=== PATIENT | male | born 1985 | race Caucasian/White ===

== ENCOUNTER 2016-12-01 19:41 | Emergency (ER) | payer OTHER ==
--- NOTE | 2016-12-01 20:14 | PROVIDER DOCUMENTATION ---
HPI-Musculoskeletal Pain/Inj - GENERAL Source: patient - HX OF PRESENT ILLNESS-MUSKULOSKELTAL Quality of Pain: reports: aching Severity in ED: moderate Onset/Duration: 1-3 hours ago Timing: still present Modifying Factors: improves with: nothing Any recent injury?: Yes Locality of Occurance: Work Similar Symptoms Previously?: No Recently seen or treated by another doctor?: No - BACK & NECK PAIN/INJURY Back/Neck Pain Location: reports: lumbar spine Back/Neck Pain Radiation: reports: Upper Legs Context / Method of Injury: reports: lifting Associated Symptoms: reports: lower back pain History of Chronic Neck or Back Pain?: No <Griselda Egan - Last Filed: 12/01/16 20:10> <Shilpi Reyes - Last Filed: 12/01/16 20:47> - GENERAL Chief Complaint: Work Related Injury Stated Complaint: @1920 WORK REALTED INJURY Time Seen by Provider: 12/01/16 19:48 - HX OF PRESENT ILLNESS-MUSKULOSKELTAL Nature of Presenting Problem: 31 year old M presents to the ED with a cc of lower back pain. 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 PT c/o pain radiating down left upper leg when leaning to the left. PT denies urinary incontinence, nausea, and vomiting. (Griselda Egan) Review of Systems - Adult - REVIEW OF SYSTEMS - ADULT Constitutional: denies: chills, fever Eyes: reports: no symptoms reported Ears, Nose, Mouth & Throat: reports: no symptoms reported Cardiovascular: reports: no symptoms reported Respiratory: reports: no symptoms reported Gastrointestinal: reports: no symptoms reported Genitourinary: denies: dysuria, hematuria Musculoskeletal: reports: back pain. denies: neck pain Integumentary: denies: skin sores/ulcer, skin thickening Neurological: reports: no symptoms reported Psychiatric: reports: no symptoms reported Endocrine: reports: no symptoms reported Hematologic/Lymphatic: reports: no symptoms reported Allergic/Immunologic: reports: no symptoms reported All Other Systems: Reviewed and Negative <Griselda Egan - Last Filed: 12/01/16 20:10> Past History - Adult - PAST MEDICAL HISTORY-ADULT Review of Records: reports: Nursing Assessment Review, Medications Reviewed Major Childhood Illnesses: reports: denies history Cardiovascular: reports: HTN, heart valve problem (mitral) Gastrointestinal: reports: GERD - PRIOR SURGERIES/PROCEDURES Surgical/Procedure History: reports: appendectomy, orthopedic (extremity) (hand with skin grafts) - IMMUNIZATION STATUS Childhood Immunizations: See Nurse Assessment Flu Vaccine: See Nurse Assessment - SOCIAL HISTORY Smoking: cigarettes, greater than 1 pack/day Provider spent 3-5 mins advising pt. on dangers of tobacco.: Discussed manners to quit use, and f/u contacts for add'l counseling. Substance Use: none/never Alcohol Use Frequency: occasionally <Griselda Egan - Last Filed: 12/01/16 20:10> Physical Exam-Injury Related - Physical Exam-Injury Related Initial Vital Signs Reviewed: Yes General Appearance: appears well, alert, mild distress Respiratory: chest non-tender, lungs clear, normal breath sounds Cardiovascular: normal peripheral pulses, regular rate, rhythm, no edema Abdominal Exam: non tender, soft Back Exam: vertebral tenderness (lumbar) Extremity: normal inspection Integumentary: normal color, warm/dry Psych/Mental Status: normal mood/affect, normal thought content, normal thought process, oriented x 3 <Griselda Egan - Last Filed: 12/01/16 20:10> Progress <Griselda Egan - Last Filed: 12/01/16 20:10> - XRAY 1 XRAY Study: Lumbar Spine XRAY Interpretation: No Fx identified (Eric) <Shilpi Reyes - Last Filed: 12/01/16 20:47> - PLAN OF CARE/RESULTS Progress/Plan/Lab Results: Discussed results and plan of care with patient. Patient agrees with plan and verbalizes understanding. Vital Signs Temp Pulse Resp BP Pulse Ox 12/01/16 19:44 97.8 F 98 H 18 153/98 100 milk Allergy (Mild, Verified 12/01/16 19:59) ABDOMINAL PAIN mushroom Allergy (Mild, Verified 12/01/16 19:59) NAUSEA/VOMITING corn Allergy (Unknown, Verified 12/01/16 19:59) Unknown Penicillins Adverse Reaction (Mild, Verified 12/01/16 19:59) RASH shellfish derived Adverse Reaction (Mild, Verified 12/01/16 19:59) HIVES Lisinopril/Hydrochlorothiazide [Lisinopril-Hctz 10-12.5 mg Tab] 1 each PO DAILY 03/01/15 Naproxen [Naprosyn] 250 mg PO BID #20 tablet 06/12/16 Orders Category Date Time Status LUMBAR SPINE [RAD] Stat Exams 12/01/16 20:01 Taken Dexamethasone [Decadron] Med 12/01/16 20:34 Discontinued 10 mg IM NOW ONE Ketorolac [Toradol] Med 12/01/16 20:34 Discontinued 60 mg IM NOW ONE Orphenadrine [Norflex] Med 12/01/16 20:34 Discontinued 60 mg IM NOW ONE (Shilpi Reyes) Departure <Griselda Egan - Last Filed: 12/01/16 20:10> - Departure Time of Disposition Order: 20:44 Certified Medical Emergency: Emergent <Shilpi Reyes - Last Filed: 12/01/16 20:47> - Departure DIAGNOSIS: Low back strain Qualifiers: Encounter type: initial encounter Qualified Code(s): S39.012A - Strain of muscle, fascia and tendon of lower back, initial encounter Disposition: HOME 01 Condition: Stable Additional Instructions: Follow up with primary care physician Take medications as directed Return to ED for any concerns or worsening of symptoms ED Follow Up Instructions: You have been treated by a care provider in the Emergency Department. These instructions are being provided to you so you can have an understanding of how to care for yourself upon discharge. Upon discharge from the Emergency Department, you are responsible for making arrangements for follow-up care by a physician of your choice. Take all prescribed medications as directed. Return to the Emergency Department immediately for any new or worsening symptoms. You may call the Physician Referral phone number at [phone] to obtain a list of Physicians who are taking new patients. Prescriptions: Cyclobenzaprine [Flexeril] 10 mg PO TID #20 tablet Naproxen Sodium [Wal-Proxen] 220 mg PO BID #20 tablet Forms: Return to School/Parent Work Attestation - Scribe Verification/Attestation Scribe:: Griselda Egan Acting as Scribe for:: Shilpi Reyes Scribe documention review:: This chart was documented by a scribe and accurately reflects the service the provider performed and the decisions made by the provider. <Griselda Egan - Last Filed: 12/01/16 20:10> - Physician/ TORREY Attestation Patient care was provided by Advanced Practice Provider:: Yes Advanced Practice Provider:: Shilpi Reyes Advanced Practice Provider documentation review:: The Mid-level provider documentation, treatment plan and medical decision making was reviewed by the physician who agrees with all treatment and medical decision making by the MLP. <Shilpi Reyes - Last Filed: 12/01/16 20:47> Physician Attestation - Physician Attestation I, the provider, attest to the following statement:: Shilpi Reyes Physician documentation Attestation:: This documentation recorded by the scribe accurately reflects the service I personally performed and the decisions made by me. <Griselda Egan - Last Filed: 12/01/16 20:10>
[2016-12-01] MEDS ORDERED: NORFLEX IM ONE (20:34)
[2016-12-01] MEDS ORDERED: DECADRON IM ONE (20:34)
[2016-12-01] MEDS ORDERED: TORADOL IM ONE (20:34)
[2016-12-01 21:08] VITALS: BP 145/104
--- NOTE | 2016-12-02 06:44 | Diag Imaging Result Document ---
PROCEDURE NAME: LUMBAR SPINE - 12/01/2016 LUMBAR SPINE AP AND LATERAL WITH OBLIQUES, 6 VIEWS: FINDINGS: Good alignment to the lumbar spine. No compressed vertebra. No subluxation. No bone spurring. IMPRESSION: No acute abnormality.
== END 2016-12-01 21:07 | disposition home or self-care (01) ==
LOC: ED 19:41
DX: S39.012A Strain of muscle, fascia and tendon of lower back, initial encounter (principal); M54.5 Low back pain; X50.9XXA Other and unspecified overexertion or strenuous movements or postures, initial encounter; I10 Essential (primary) hypertension; K21.9 Gastro-esophageal reflux disease without esophagitis; F17.210 Nicotine dependence, cigarettes, uncomplicated; Z71.6 Tobacco abuse counseling; Z79.899 Other long term (current) drug therapy
CPT/HCPCS: 72110; J1885; J2360